=== PATIENT | female | born 1970 | race Caucasian/White ===

== ENCOUNTER 2020-08-06 16:20 | Observation (INO) | payer OTHER ==
[2020-08-06] MEDS ORDERED: SODIUM CHLORIDE 0.9% 500 ML 500 ML IV STA (16:37)
[2020-08-06 16:53] LABS: Glucose,Whole Blood 93 mg/dL (75-99)
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
[2020-08-06 17:18] LABS: Prothrombin Time 10.9 sec (9.0-12.0)
[2020-08-06 17:20] LABS: ALT 17 U/L (4-34); AST 36 U/L (14-36); African American GFR (CKD) >90 (>60 ml/min/1.73 sqM); Albumin 4.4 g/dL (3.5-5.0); Alkaline Phosphatase 61 U/L (38-126); Anion Gap 10 mmol/L; Blood Urea Nitrogen 18 mg/dL (7-17); Calcium 9.4 mg/dL (8.4-10.2); Carbon Dioxide 22 mmol/L (22-30); Chloride 106 mmol/L (98-107); Glucose 93 mg/dL (74-99); Non-African American GFR(CKD) >90 (>60 ml/min/1.73 sqM); Sodium 138 mmol/L (137-145); Total Bilirubin 0.5 mg/dL (0.2-1.3); Total Protein 7.8 g/dL (6.3-8.2)
[2020-08-06 17:26] LABS: Basophils % (A) 0 %; Eosinophils # (A) 0.2 k/uL (0-0.7); Eosinophils % (A) 3 %; HCT 43.3 % (34.0-46.0); HGB 14.6 gm/dL (11.4-16.0); Lymphocytes # (A) 1.8 k/uL (1.0-4.8); Lymphocytes % (A) 29 %; MCH 29.3 pg (25.0-35.0); MCHC 33.6 g/dL (31.0-37.0); MCV 87.3 fL (80.0-100.0); Mean Platelet Volume 8.7; Monocytes # (A) 0.4 k/uL (0-1.0); Monocytes % (A) 7 %; Neutrophils # (A) 3.6 k/uL (1.3-7.7); Neutrophils % (A) 58 %; Platelet Count 255 k/uL (150-450); RBC 4.97 m/uL (3.80-5.40); RDW 13.3 % (11.5-15.5); WBC 6.3 k/uL (3.8-10.6)
[2020-08-06 17:27] LABS: Potassium 4.5 mmol/L (3.5-5.1)
--- NOTE | 2020-08-06 17:53 | CT ---
EXAMINATION: CT brain wo con for TPA DATE AND TIME: 08/06/2020 5:38 PM CLINICAL INDICATION: PHH; Neuro deficit, acute, stroke suspected TECHNIQUE: Standard departmental protocol DLP: 1492.2 mGy-cm COMPARISON: None. FINDINGS: The calvarium is intact. There is no intracranial hemorrhage. There is no intracranial mass or mass effect. No definite new intra-axial or extra-axial attenuation defect. The paranasal sinuses, middle ear cavities, and mastoid sinus air cells are clear. The orbits are unremarkable. IMPRESSION: NO ACUTE PROCESS.
--- NOTE | 2020-08-06 18:00 | CT ---
EXAMINATION TYPE: CT angio head neck without contrast and 3-D reconstruction renderings DATE OF EXAM: 08/06/2020 HISTORY: Vision problems/ Left arm numbness COMPARISON: None CT DLP: 1492.2 mGycm. Automated Exposure Control for Dose Reduction was Utilized. TECHNIQUE: CTA scan of the neck is performed with IV Contrast, patient injected with 65 mL of Isovue 370, axial images are obtained, coronal and sagittal reformatted images are reviewed. Three-D recons tructed images are created on an independent workstation and reviewed. FINDINGS: Vascular Structures: The carotid and vertebral arterial systems are widely patent throughout the neck . Intracranial arterial anterior and posterior systems are widely patent. Venous structures of the neck and intracranial dural venous sinuses are unremarkable. Other: The lung apices, soft tissues and skeletal structures are unremarkable. The cranial and intrac ranial contents are unremarkable. IMPRESSION: No significant abnormality is seen.
[2020-08-06] MEDS ORDERED: ASPIRIN 325 MG TAB PO STA (18:02)
--- NOTE | 2020-08-06 18:04 | XR ---
EXAMINATION: XR chest 2V DATE AND TIME: 08/06/2020 5:30 PM CLINICAL INDICATION: PHH; altered mental status TECHNIQUE: Departmental protocol COMPARISON: None FINDINGS: The lungs are clear. The pleural spaces are negative. The cardiac silhouette is not enlarged. The remainder of the mediastinal silhouette is unremarkable. The skeletal structures and soft tissues are negative for acute findings. IMPRESSION: No acute radiographic process.
[2020-08-06] MEDS ORDERED: KETOROLAC 15 MG/ML 1 ML VIAL IVP STA (18:43)
[2020-08-06] MEDS ORDERED: SODIUM CHLORIDE 0.9% 500 ML 500 ML IV ONE (18:43)
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
[2020-08-06] MEDS: SODIUM CHLORIDE 0.9% 1,000 ML IV SCH (22:43)
[2020-08-07] MEDS ORDERED: MORPHINE SULFATE 4 MG/ML SYRINGE IVP STA (01:30)
[2020-08-07] MEDS ORDERED: PROCHLORPERAZINE INJ 10 MG/2 ML VIAL IVP STA (01:30)
[2020-08-07] MEDS ORDERED: diphenhydrAMINE 50 MG/ML 1 ML VIAL IVP STA (01:30)
[2020-08-07] MEDS ORDERED: MORPHINE SULFATE 4 MG/ML SYRINGE IVP PRN (01:30)
[2020-08-07 07:13] VITALS: RESP 16
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
[2020-08-07] MEDS ORDERED: CLOPIDOGREL 75 MG TAB PO SCH (10:00)
[2020-08-07] MEDS: SODIUM CHLORIDE 0.9% 1,000 ML IV SCH (10:34)
--- NOTE | 2020-08-07 11:00 | ECHOF ---
Referral Reason:Thrombus MEASUREMENTS -------- HEIGHT: 198.1 cm WEIGHT: 115.7 kg BP: IVSd: 0.9 cm (0.6 - 1.1) LVIDd: 4.7 cm (3.9 - 5.3) LVPWd: 1.0 cm (0.6 - 1.1) IVSs: 1.1 cm LVIDs: 2.6 cm LVPWs: 1.3 cm LA Diam: 3.4 cm (2.7 - 3.8) Ao Diam: 2.8 cm (2.0 - 3.7) AV Cusp: 1.6 cm (1.5 - 2.6) MV EXCURSION: 28.113 mm (> 18.000) MV EF SLOPE: 104 mm/s (70 - 150) EPSS: 0.5 cm MV E Jomar: 0.76 m/s MV DecT: 172 ms MV A Jomar: 0.60 m/s MV E/A Ratio: 1.27 RAP: 5.00 mmHg RVSP: 14.31 mmHg FINDINGS -------- Sinus rhythm. This was a technically good study. LV size, wall thickness and systolic function are normal, with an EF greater than 55%. The left daria tricular size is normal. The right ventricle is normal in size. The left atrial size is normal. The right atrial size is normal. The aortic valve is trileaflet, and appears structurally normal. No aortic stenosis or regurgitation. There is trace to mild mitral regurgitation. Mild tricuspid regurgitation present. Right ventricular systolic pressure is normal at < 35 mmHg. There is no pulmonic regurgitation present. The aortic root size is normal. There is a trivial pericardial effusion present. CONCLUSIONS -------- 1. LV size, wall thickness and systolic function are normal, with an EF greater than 55%. 2. The left ventricular size is normal. 3. The right ventricle is normal in size. 4. The left atrial size is normal. 5. The right atrial size is normal. 6. The aortic valve is trileaflet, and appears structurally normal. No aortic stenosis or regurgitati on. 7. There is trace to mild mitral regurgitation. 8. Mild tricuspid regurgitation present. 9. There is no pulmonic regurgitation present. 10. The aortic root size is normal. 11. There is a trivial pericardial effusion present. WELT BEATER: Luz Mahmood RDCS
--- NOTE | 2020-08-07 11:56 | MR ---
EXAMINATION TYPE: MR brain wo/w con DATE OF EXAM: 08/07/2020 COMPARISON: CT brain 08/06/2020 HISTORY: Hx of Migraines, No have Dizziness, blurry vision and Right arm numbness CONTRAST: Performed utilizing 7 mL intravenous Gadavist gadolinium contrast. TECHNIQUE: Multiplanar, multiecho imaging on a 3.0 Malaika magnet is performed through the brain. Stud y is performed within 24 hours of arrival to the hospital. The craniovertebral junction is normal. The pituitary is normal. Diffusion-weighted imaging is performed. No abnormal hyperintensity is present to suggest an acute i ntracranial infarct or acute ischemic change. There are scattered punctate areas of hyperintensity on T2 and Inversion Recovery weighted sequences which are non-specific but can be related to migraine headaches. Early microvascular ischemic change could be considered. Vasculitis would be within the differential. A prominent perivascular space is l ikely present in parietal occipital watershed region Ventricles and sulci are appropriate for the patient age. No suspicious enhancement is evident following contrast administration. IMPRESSIONS: 1. Punctate deep white matter changes can be compatible with migraine headaches. Differential diagnos is is discussed above. 2. Probable perivascular ischemic change left parietal occipital white matter. 3. No acute intracranial process.
[2020-08-07 12:32] LABS: Chol/HDL Ratio 3.91; LDL Cholesterol,Calculated 114.8 mg/dL (0.0-131.0); VLDL Calculation 19.2 mg/dL (5.00-40.00)
[2020-08-07] MEDS ORDERED: IBUPROFEN 800 MG TAB PO PRN (13:37)
[2020-08-07 14:17] VITALS: BP 114/70; PULSE 74; TEMP 98.2
--- NOTE | 2020-08-07 14:27 | DS ---
DISCHARGE SUMMARY DATE OF SERVICE: 08/07/2020 FINAL DIAGNOSES: 1. Acute transient ischemic attack involving the right hemisphere with right- sided weakness, incoordination and blurring of vision. 2. History of section. 3. History of tubal ligation. 4. History of hernia. 5. Family history of CVI. DISCHARGE DISPOSITION: The patient will be discharged in stable condition with guarded prognosis. The patient will be discharged after clearance from Neurology. HISTORY OF PRESENT ILLNESS: This 49-year-old woman with a past medical history of multiple medical problems being followed by Dr. Ariel Crawley in the outpatient setting was admitted with dizziness, weakness and as well as some incoordination. The patient was suspected to have TIA. The CT scan and complete neurovascular work was negative. MRA also showed small-vessel ischemia. Neurology saw the patient. Neurology recommended a combination of aspirin, Plavix, and Lipitor. The patient reported she will take baby aspirin. The patient is keen on going home so hence the patient will be discharged in a stable condition and guarded prognosis. I would recommend the patient to follow up with primary physician and Neurology in the outpatient setting. On exam, vitals are stable. CARDIOVASCULAR: S1, S2 muffled. ABDOMEN: Soft. NERVOUS SYSTEM: No focal deficits. DISCHARGE ADVICE: 1. Diet is cardiac. 2. Activity limited until followup. 3. Follow up with Dr. Crawley in 2-3 days. 4. Follow up with Dr. Marie in one week. MEDICATIONS: 1. Calcium as before. 2. Ibuprofen p.r.n. 3. Multivitamins one p.o. daily. 4. Oregano oil as before. 5. Aspirin 81 mg p.o. daily. Once again, the patient will be discharged in stable condition with guarded prognosis. MMODL / IJN: [id number] / MTDD
[2020-08-07] MEDS ORDERED: ASPIRIN 325 MG TAB PO SCH (18:49)
[2020-08-07] MEDS ORDERED: ATORVASTATIN 40 MG TAB PO SCH (21:00)
[2020-08-08] MEDS ORDERED: ASPIRIN 81 MG PO SCH (09:00)
== END 2020-08-07 15:05 | disposition home or self-care (01) ==
LOC: EC 16:20 → 6NMEDSUR 18:48 → 1SOBS 08-07 08:11
PROVIDERS: ADMIT Internal Medicine; ATTEND Internal Medicine
DX: G45.9 Transient cerebral ischemic attack, unspecified (principal); R53.1 Weakness; H53.8 Other visual disturbances; R27.9 Unspecified lack of coordination; G43.109 Migraine with aura, not intractable, without status migrainosus; Z79.02 Long term (current) use of antithrombotics/antiplatelets; Z79.899 Other long term (current) drug therapy; Z79.1 Long term (current) use of non-steroidal anti-inflammatories (NSAID); Z91.040 Latex allergy status; Z88.9 Allergy status to unspecified drugs, medicaments and biological substances; Z98.51 Tubal ligation status; Z98.891 History of uterine scar from previous surgery; Z87.19 Personal history of other diseases of the digestive system; Z20.822 Contact with and (suspected) exposure to COVID-19; Z82.41 Family history of sudden cardiac death; Z82.49 Family history of ischemic heart disease and other diseases of the circulatory system; Z82.3 Family history of stroke
CPT/HCPCS: 96361; 96374; 96375; 99285; 36415; 93005; 93306; 80061; 80053; 84443; 84484; 85025; 85610; 85730; 87635; 71046; 70496; 70450; 70498; 70553; G0378 ×2; J1200; J0780; J1885; A9585; Q9967; 96376

== ENCOUNTER → 2023-09-25 | Outpatient (CLI) | payer BC ==
--- NOTE | 2023-10-04 12:02 | MM ---
Reason for Exam: Screening (asymptomatic). Last mammogram was performed 7 year(s) and 2 month(s) ago. Patient History: Menarche at age 14. First Full-Term at age 20. Perimenopausal. Risk Values: Desiree 5 year model risk: 0.9%. NCI Lifetime model risk: 7.1%. Prior Study Comparison: 07/13/2016 Bilateral Screening Mammogram, [facility]. Tissue Density: The breasts are extremely dense, which lowers the sensitivity of mammography. Findings: There is no suspicious group of microcalcifications or new suspicious mass in either breast. Benign appearing calcifications. There is bilateral increased tissue seen near the axilla and upper outer quadrant of the breast. Most likely related to superimposed breast tissue. Recommend bilateral spot compression views and axial XCCL views. There is no suspicious group of microcalcifications or new suspicious mass in either breast. Benign appearing calcifications. There is bilateral increased tissue seen near the axilla and upper outer quadrant of the breast. Most likely related to superimposed breast tissue. Recommend bilateral spot compression views and bilateral XCCL views. Overall Assessment: Incomplete: need additional imaging evaluation, BI-RAD 0 Management: Diagnostic Mammogram of both breasts. . Patient should continue monthly self-breast exams. A clinical breast exam by your physician is recommended on an annual basis. This exam should not preclude additional follow-up of suspicious palpable abnormalities. Note on Desiree scores and lifetime risk: 1. A Desiree score greater than 3% is considered moderate risk. If this is the case, consider specialist referral to assess eligibility for a risk reducing agent. 2. If overall lifetime risk for the development of breast cancer is 20% or higher, the patient may qualify for future screening with alternating mammogram and breast MRI. Electronically signed and approved by: Kal Luu M.D. Radiologis
== END | disposition home or self-care (01) ==
LOC: MERGE 09:30 → RADMAMWWP 12:22
PROVIDERS: ATTEND Pediatrics
DX: Z12.31 Encounter for screening mammogram for malignant neoplasm of breast (principal)
CPT/HCPCS: 77063; 77067

== ENCOUNTER → 2023-10-05 | Outpatient (CLI) | payer BC ==
--- NOTE | 2023-10-05 14:50 | MM ---
Reason for Exam: Clinical finding. Last screening mammogram was performed less than 1 month ago. Patient History: Menarche at age 14. First Full-Term at age 20. Perimenopausal. Risk Values: Desiree 5 year model risk: 0.9%. NCI Lifetime model risk: 7.1%. Prior Study Comparison: 07/13/2016 Bilateral Screening Mammogram, [facility]. 09/25/2023 Bilateral MG 3D screening mammo w/cad, [facility]. Tissue Density: The breasts are heterogeneously dense, which may obscure small masses. Findings: Analyzed By CAD. Central posterior asymmetric densities on the bilateral MLO views persist on spot compression. However, no discrete underlying mass is identified on compression 3-D images. Asymmetric density far lateral posterior right breast on the axial view also shows no persisting abnormality on 3-D images suggesting an island of fibroglandular tissue. Short interval follow-up recommended to ensure stability. Overall Assessment: Probably benign, BI-RAD 3 Management: Diagnostic Mammogram of both breasts in 6 months. . Results were given to the patient verbally at the time of exam. Patient should continue monthly self-breast exams. A clinical breast exam by your physician is recommended on an annual basis. This exam should not preclude additional follow-up of suspicious palpable abnormalities. Note on Desiree scores and lifetime risk: 1. A Desiree score greater than 3% is considered moderate risk. If this is the case, consider specialist referral to assess eligibility for a risk reducing agent. 2. If overall lifetime risk for the development of breast cancer is 20% or higher, the patient may qualify for future screening with alternating mammogram and breast MRI. Electronically signed and approved by: Lynn Jones M.D. Radiologist
== END | disposition home or self-care (01) ==
LOC: RADMAMWWP 13:29
PROVIDERS: ATTEND Pediatrics
DX: R92.333 Mammographic heterogeneous density, bilateral breasts (principal)
CPT/HCPCS: 77062; 77066